=== PATIENT | female | born 1995 | race Hispanic/Latino ===

== ENCOUNTER 2022-10-16 04:32 | Emergency (ER) | payer MEDICAID ==
[2022-10-16] VITALS (8 sets, daily range): BP systolic 103–125; BP diastolic 57–90
[~2022-10-16] VITALS: Ht 172.7 cm; Wt 77.0 kg
[2022-10-16 05:15] LABS: BASO% 0.2 % (0-3); EOS% 0.7 % (0-8); HEMATOCRIT 37.9 % (37.0-47.0); IMMATURE GRANULOCYTES 0.1 % (0.0-5.0); LYMPH% 27.1 % (15-41); MEAN CELL VOLUME 90.9 fL CALC (80.0-100.0); MEAN CORPUSCULAR HGB 28.8 pG CALC (26.0-32.0); MEAN CORPUSCULAR HGB CONC 31.7 g/dL CAL (32.0-36.0); MONO% 4.1 % (2-13); NEUT# 5.55 thou/uL (2.00-7.15); NEUT% 67.8 % (42-76); RED BLOOD COUNT 4.17 mill/uL (4.20-5.60); RED CELL DISTRI WIDTH 14.1 % (11.5-15.5)
[2022-10-16 05:35] LABS: ALBUMIN 4.2 g/dL (3.2-5.0); ALKALINE PHOSPHATASE 99 u/l (38-126); ANION GAP 11 (6-22 (CALC)); BILIRUBIN, TOTAL 0.4 mg/dL (0.02-1.3); BUN 9 mg/dL (7-17); BUN/CREATININE RATIO 12 (12-20 (CALC)); CARBON DIOXIDE 26 mmol/l (22-30); CHLORIDE 108 mmol/l (95-108); CREATININE 0.8 mg/dL (0.5-1.0); GFR FOR AFR.AMER. > 60 ML/MIN (>=60 (CALC)); GFR OTHER RACES > 60 ML/MIN (>=60 (CALC)); LIPASE 51 u/l (23-300); POTASSIUM 3.5 mmol/l (3.5-5.1); SGOT/AST 63 u/l (14-36); SODIUM 142 mmol/l (137-146); TOTAL PROTEIN 7.7 g/dL (6.3-8.2)
[2022-10-16 05:48] LABS: ACT PARTIAL THROMBO TIME 21.2 SECONDS (20.0-32.5)
[2022-10-16 05:57] LABS: D-DIMER 0.95 mg/L (0.19-0.60)
[2022-10-16] MEDS ORDERED: OMEPRAZOLE20 M4 PO (07:34)
== END 2022-10-16 07:51 | disposition home or self-care (01) ==
LOC: ED 04:32
PROVIDERS: Family Medicine
DX: O90.89 Other complications of the puerperium, not elsewhere classified (principal); R07.9 Chest pain, unspecified; R10.13 Epigastric pain
CPT/HCPCS: Q9967; S0164